=== PATIENT | female | born 1940 ===

== ENCOUNTER 2019-11-07 09:00 | Inpatient (IN) | payer OTHER ==
[~2019-11-07] VITALS: Ht 162.6 cm; Wt 59.0 kg
[2019-11-07] MEDS ORDERED: DEPAKOTE ER500 MG PO (14:07)
[2019-11-07] MEDS ORDERED: DEXILANT60 MG PO (14:07)
[2019-11-07] MEDS ORDERED: NORVASC10 MG PO (14:07)
[2019-11-07] MEDS ORDERED: NAMENDA10 MG PO (14:08)
[2019-11-07] MEDS ORDERED: CARAFATE1 GM PO (14:08)
[2019-11-07] MEDS ORDERED: TOPROL XL25 MG PO (14:08)
[2019-11-07] MEDS ORDERED: ZANTAC150 MG PO (14:08)
[2019-11-07] MEDS ORDERED: FOSAMAX70 MG PO (14:09)
[2019-11-10] MEDS ORDERED: RANITIDINE HCL300 MG PO (10:42)
== END 2019-11-12 18:57 | DRG 470 ==
LOC: SURH 11-10 06:15 → O/R 11-10 06:15 → SURH 11-10 09:00 → EDBD 11-10 09:00 → SURH 11-10 14:07
PROVIDERS: ADMIT Orthopaedic Surgery
PROC: 4A09X1Z Measurement of Respiratory Capacity, External Approach (ICD-10-PCS; 2019-11-10)
PROC: 0SRD0J9 Replacement of Left Knee Joint with Synthetic Substitute, Cemented, Open Approach (ICD-10-PCS; principal; 2019-11-10 07:00)
DX: M17.12 Unilateral primary osteoarthritis, left knee (principal); I10 Essential (primary) hypertension